=== PATIENT | female | born 1995 | race Caucasian/White ===

== ENCOUNTER 2018-05-02 16:53 | Emergency (ER) ==
[2018-05-02 17:00] VITALS: BP 136/75; TEMP 98.7; BMI 25.0
[2018-05-02] MEDS ORDERED: DUONEB NEB STA (17:06)
[2018-05-02] MEDS ORDERED: ZITHROMAX PO STA (17:06)
[2018-05-02] MEDS ORDERED: DECADRON 4 MG/ML SDV IM STA (17:07)
--- NOTE | 2018-05-02 17:48 | ED.PDOC ---
General ED Provider: Dr. MEME REYES Chief Complaint: Shortness of Air Stated Complaint: asthma attack Time Seen by Physician: 17:00 (arrived whezzing stated has flu like symp) Mode of Arrival: Walk-In Information Source: Patient Exam Limitations: No limitations Nursing and Triage Documentation Reviewed and Agree: Yes Does patient meet sepsis criteria?: No System Inflammatory Response Syndrome: Not Applicable (rn present at all times ) Sepsis Protocol: For patient's 13 years and over: Temp is 96.8 and below OR 101 and greater Pulse >90 BPM Resp >20/minute Acutely Altered Mental Status Are patient's symptoms suggestive of a new infection, such as: -Pneumonia -Skin, Soft Tissue -Endocarditis -UTI -Bone, Joint Infection -Implantable Device -Acute Abdominal Infection -Wound Infection -Meningitis -Blood Stream Catheter Infection -Unknown Respiratory Complaint Exam - Asthma Complaint/Exam Onset/Duration: today Symptoms Are: Still present Timing: Intermittent Initial Severity: Moderate Current Severity: Mild Character: Reports: Non-productive cough Aggravating: Reports: Weather change, URI Alleviating: Reports: Inhalers Associated Signs and Symptoms: Reports: URI Related History: Reports: Similar episode Related Surgical History: Reports: None Status Asthmaticus Risk Factors: Reports: None Current Asthma Medication Usage: No Recent Antibiotics: No Respiratory Distress: None Accessory Muscle Use: No Retractions: Not Present Diminished Breath Sounds: No Prolonged Expiratory Phase: No Unable to Speak Full Sentences: No Differential Diagnoses: Acute Asthma Review of Systems - Review Of Systems Constitutional: Reports: Malaise Eyes: Reports: No symptoms Ears, Nose, Mouth, Throat: Reports: No symptoms Respiratory: Reports: Cough, Wheezing Cardiac: Reports: No symptoms GI: Reports: No symptoms : Reports: No symptoms Musculoskeletal: Reports: No symptoms Skin: Reports: No symptoms Neurological: Reports: No symptoms Endocrine: Reports: No symptoms Hematologic/Lymphatic: Reports: No symptoms All Other Systems: Reviewed and Negative Past Medical History - Past Medical History Previously Healthy: Yes Endocrine: Reports: None Cardiovascular: Reports: None Respiratory: Reports: Asthma Hematological: Reports: None Gastrointestinal: Reports: None Genitourinary: Reports: None Neuro/Psych: Reports: None Musculoskeletal: Reports: None Cancer: Reports: None Last Menstrual Period: 04/29 - Surgical History General Surgical History: Reports: None - Family History Family History: Reports: None - Social History Smoking Status: Never smoker Hx Substance Use: No Alcohol Screening: Occasionally - Immunizations Tetanus Shot up to Date: Yes Physical Exam - Physical Exam Appearance: Ill-appearing Ill-appearing: Mild Eyes: TIMBO, EOMI, Conjunctiva clear ENT: Ears normal, Nose normal, Oropharynx normal Respiratory: Breath sounds diminished (bases only), Wheezes Cardiovascular: RRR, Pulses normal, No rub, No murmur GI/: Soft, Nontender, No masses, Bowel sounds normal, No Organomegaly Musculoskeletal: Normal strength, ROM intact, No edema, No calf tenderness Skin: Warm, Dry, Normal color Neurological: Sensation intact, Motor intact, Reflexes intact, Cranial nerves intact, Alert, Oriented Psychiatric: Affect appropriate, Mood appropriate Re-Evaluation - Re-Evaluation Time of Re-Evaluation: 17:48 Status: Improved Vital Signs Stable: Yes Pain Level: 0 Appearance: NAD Lungs: Clear Skin: Warm and Dry Neuro: Alert and Oriented X3 CV: RRR Critical Care Note - Critical Care Note Total Time (mins): 0 Course - Course Hematology/Chemistry: 05/02/18 17:20 05/02/18 17:20 Orders, Labs, Meds: Lab Review 05/02/18 05/02/18 05/02/18 17:20 17:20 17:20 WBC 7.57 RBC 4.65 Hgb 14.0 Hct 39.5 MCV 84.9 MCH 30.1 MCHC 35.4 RDW Coeff of Murphy 11.9 Plt Count 246 Immature Gran % (Auto) 0.3 Neut % (Auto) 49.5 Lymph % (Auto) 36.7 [place] % (Auto) 7.9 Eos % (Auto) 5.3 Baso % (Auto) 0.3 Immature Gran # (Auto) 0.0 Neut # (Auto) 3.8 Lymph # (Auto) 2.8 [place] # (Auto) 0.6 Eos # (Auto) 0.4 Baso # (Auto) 0.0 Sodium 137.1 Potassium 3.95 Chloride 105.2 Carbon Dioxide 25.7 Anion Gap 10.15 BUN 15.0 Creatinine 0.64 Estimated GFR (MDRD) 115.00 BUN/Creatinine Ratio 23.43 Glucose 92.7 Calcium 9.38 Total Bilirubin 0.26 AST 22.9 ALT 15.6 Alkaline Phosphatase 58.0 Total Protein 7.35 Albumin 4.30 Globulin 3.05 Albumin/Globulin Ratio 1.40 Serum , Qual Negative Influ A Molecular Assay Influ B Molecular Assay RSV Antigen 05/02/18 05/02/18 17:27 17:27 WBC RBC Hgb Hct MCV MCH MCHC RDW Coeff of Murphy Plt Count Immature Gran % (Auto) Neut % (Auto) Lymph % (Auto) [place] % (Auto) Eos % (Auto) Baso % (Auto) Immature Gran # (Auto) Neut # (Auto) Lymph # (Auto) [place] # (Auto) Eos # (Auto) Baso # (Auto) Sodium Potassium Chloride Carbon Dioxide Anion Gap BUN Creatinine Estimated GFR (MDRD) BUN/Creatinine Ratio Glucose Calcium Total Bilirubin AST ALT Alkaline Phosphatase Total Protein Albumin Globulin Albumin/Globulin Ratio Serum , Qual Influ A Molecular Assay Negative by naat Influ B Molecular Assay Negative by naat RSV Antigen Negative by naat Orders Category Date Time Status NEBULIZER TREATMENT Stat CARDIO 05/02/18 17:06 Completed CBC W/ AUTO DIFF Stat LAB 05/02/18 17:20 Completed COMPREHENSIVE METABOLIC PANEL Stat LAB 05/02/18 17:20 Completed FLU A/B MOLECULAR Stat LAB 05/02/18 17:27 Completed MOLECULAR GROUP A STREP Stat LAB 05/02/18 17:27 Completed RSV Stat LAB 05/02/18 17:27 Completed SERUM Stat LAB 05/02/18 17:20 Completed Azithromycin [Zithromax] MEDS 05/02/18 17:06 Discontinued 1,000 mg PO ONCE STA Dexamethasone 4 mg/ml Inj [Decadron 4 mg/ml Sdv] MEDS 05/02/18 17:07 Discontinued 8 mg IM ONCE STA Ipratropium/Albuterol Neb [Duoneb] MEDS 05/02/18 17:06 Discontinued 1 vial NEB ONCE STA CHEST, 2 VIEWS PA & LAT Stat RADS 05/02/18 17:08 Completed Medications Discontinued Medications Generic Name Dose Route Start Last Admin Trade Name Freq PRN Reason Stop Dose Admin Albuterol/Ipratropium 1 vial 05/02/18 17:06 05/02/18 17:18 Duoneb NEB 05/02/18 17:07 1 vial ONCE STA Administration Azithromycin 1,000 mg 05/02/18 17:06 05/02/18 17:18 Zithromax PO 05/02/18 17:07 1,000 mg ONCE STA Administration Dexamethasone Sodium Phosphate 8 mg 05/02/18 17:07 05/02/18 17:19 Decadron 4 Mg/Ml Sdv IM 05/02/18 17:08 8 mg ONCE STA Administration Vital Signs: Temp Pulse Resp BP Pulse Ox 05/02/18 16:55 98.7 F 109 H 16 136/75 100 Departure - Departure Time of Disposition: 19:00 Disposition: HOME SELF-CARE Discharge Problem: Asthma attack Qualifiers: Asthma severity: mild Asthma persistence: intermittent Qualified Code(s): J45.21 - Mild intermittent asthma with (acute) exacerbation Instructions: Asthma (ED), Bronchospasm (ED), Wheezing (ED) Condition: Good Pt referred to PMD for follow-up: Yes IPMP verified?: No Additional Instructions: Please call your Family Physician as soon as possible to schedule a follow-up appointment.IF SHORT OF BREATH DO NOT TOUGH IT OUT THIS ISSUE COULD GO BACK REAL QUICK, IF SHORT OF AIR OR FEEL WORSE PLEASE RETURN IMMEDIATELY zithromax dose pack as directed. 500mg one tablet daily (#4) tussinex 5ml two times a day as needed for cough. (#50ml) albuterol mdi 2 puffs four times a day (#1) Prescriptions: Methylprednisolone [Medrol Dosepak] 4 mg PO DIRECTED #1 pkg Allergies/Adverse Reactions: Allergies No Known Allergies Allergy (Unverified 05/02/18 17:00) Home Medications: Ambulatory Orders Albuterol Sulfate 0.083% Neb [Albuterol 0.083% Neb] 1 vial IH PRN PRN 05/02/18 Methylprednisolone [Medrol Dosepak] 4 mg PO DIRECTED #1 pkg 05/02/18 Disposition Discussed With: Patient, Family
--- NOTE | 2018-05-03 07:07 | DI ---
EXAM: CHEST FRONTAL AND LATERAL VIEWS HISTORY: Asthma attack, shortness of breath. COMPARISON: None FINDINGS: Heart size and mediastinal contour within normal limits. Lungs are mildly hyperinflate d. No acute infiltrates are seen. No vascular congestion. There is no consolidation, visible pleur al fluid or pneumothorax. Bones reveal no acute fracture. IMPRESSION: No acute cardiopulmonary process.
== END 2018-05-02 18:15 | disposition home or self-care (01) ==
LOC: ED 16:53
DX: J45.21 Mild intermittent asthma with (acute) exacerbation (principal)
CPT/HCPCS: 36415; 80053; 84703; 85025; 87502; 87651; 87801; 94640; 96372; 99283